=== PATIENT | male | born 1955 | race Caucasian/White ===

== ENCOUNTER → 2020-12-18 | Outpatient (CLI) | payer MEDICARE, OTHER ==
[2020-12-18 11:15] LABS: HEMOGLOBIN 10.9 g/dl (13.5-18.0); MEAN CELL VOLUME 97 fl (80.0-100.0); MEAN CORPUSCULAR HEMOGLOBIN 32 pg (27.0-31.0); MEAN CORPUSCULAR HGB CONC 33 g/dl (33.0-37.0); MEAN PLATELET VOLUME 10.6 fl (7.4-10.4); PLATELET COUNT 95 K/mm3 (130-400); RED BLOOD COUNT 3.38 M/mm3 (4.20-5.60); REDCELL DISTRIBUTION WIDTH-CV 16.8 % (11.5-14.5)
[2020-12-18 11:18] LABS: HEMATOCRIT 32.8 % (42.0-52.0)
[2020-12-18 11:26] LABS: BILIRUBIN,TOTAL 1.6 mg/dL (0.0-1.0); CALCIUM 8.9 mg/dL (8.4-10.2); CREATININE, serum 0.74 (0.66-1.25); MAGNESIUM 1.8 mg/dL (1.6-2.3); POTASSIUM 4.6 mmol/L (3.4-5.0); TOTAL PROTEIN 6.4 gm/dL (6.4-8.2)
[2020-12-18 11:49] LABS: ANISOCYTOSIS 1+; BAND 19 % (0-10); LYMPHOCYTE 2 % (20.0-51.0); NEUTROPHILS 78 % (42.0-75.2); PLATELET ESTIMATE DECREASED (NORMAL); TOXIC GRANULATION PRESENT
== END ==
LOC: COL.LAB 10:41
DX: C61 Malignant neoplasm of prostate (principal)

== ENCOUNTER → 2020-12-21 | Outpatient (CLI) | payer MEDICARE, OTHER ==
[2020-12-21 09:54] LABS: MEAN CELL VOLUME 96 fl (80.0-100.0); MEAN CORPUSCULAR HGB CONC 33 g/dl (33.0-37.0); MEAN PLATELET VOLUME 10.7 fl (7.4-10.4); PLATELET COUNT 73 K/mm3 (130-400); RED BLOOD COUNT 3.08 M/mm3 (4.20-5.60); REDCELL DISTRIBUTION WIDTH-CV 16.7 % (11.5-14.5)
[2020-12-21 09:56] LABS: HEMATOCRIT 29.6 % (42.0-52.0); HEMOGLOBIN 9.8 g/dl (13.5-18.0); MEAN CORPUSCULAR HEMOGLOBIN 32 pg (27.0-31.0)
[2020-12-21 10:03] LABS: ALBUMIN 4.1 gm/dL (3.5-5.0); BILIRUBIN,TOTAL 1.3 mg/dL (0.0-1.0); CALCIUM 8.9 mg/dL (8.4-10.2); CREATININE, serum 0.78 (0.66-1.25); MAGNESIUM 1.6 mg/dL (1.6-2.3); POTASSIUM 4.1 mmol/L (3.4-5.0); TOTAL PROTEIN 6.6 gm/dL (6.4-8.2)
[2020-12-21 10:31] LABS: BAND 9 % (0-10); LYMPHOCYTE 16 % (20.0-51.0); NEUTROPHILS 69 % (42.0-75.2)
[2020-12-21 10:32] LABS: OVALOCYTES 1+
[2020-12-21 10:33] LABS: PLATELET ESTIMATE DECREASED (NORMAL)
== END ==
LOC: COL.LAB 09:27
DX: C61 Malignant neoplasm of prostate (principal); C79.51 Secondary malignant neoplasm of bone

== ENCOUNTER → 2020-12-25 | Outpatient (CLI) | payer MEDICARE, OTHER ==
[2020-12-25 14:02] LABS: HEMOGLOBIN 11.2 g/dl (13.5-18.0); MEAN CELL VOLUME 97 fl (80.0-100.0); MEAN CORPUSCULAR HEMOGLOBIN 32 pg (27.0-31.0); MEAN CORPUSCULAR HGB CONC 33 g/dl (33.0-37.0); MEAN PLATELET VOLUME 10.5 fl (7.4-10.4); RED BLOOD COUNT 3.49 M/mm3 (4.20-5.60); REDCELL DISTRIBUTION WIDTH-CV 19.2 % (11.5-14.5)
[2020-12-25 14:12] LABS: BILIRUBIN,TOTAL 1.4 mg/dL (0.0-1.0); CREATININE, serum 0.85 (0.66-1.25); MAGNESIUM 1.8 mg/dL (1.6-2.3); POTASSIUM 4.2 mmol/L (3.4-5.0); TOTAL PROTEIN 6.3 gm/dL (6.4-8.2)
[2020-12-25 14:17] LABS: HEMATOCRIT 33.8 % (42.0-52.0)
[2020-12-25 14:21] LABS: PLATELET COUNT 45 K/mm3 (130-400)
[2020-12-25 15:23] LABS: BAND 21 % (0-10); EOSINOPHIL 2 % (0-4); LYMPHOCYTE 23 % (20.0-51.0); METAMYELOCYTE 2 % (0-0); NEUTROPHILS 49 % (42.0-75.2); NUCLEATED RED BLOOD CELL 2 (0-6)
[2020-12-25 15:24] LABS: PLATELET ESTIMATE DECREASED (NORMAL)
[2020-12-25 15:26] LABS: ANISOCYTOSIS 2+; OVALOCYTES 1+
[2020-12-25 15:27] LABS: TEAR DROP CELLS 1+
[2020-12-25 15:28] LABS: POLYCHROMASIA 2+; SCHISTOCYTES 1+
[2020-12-26 08:43] LABS: PATHOLOGY DIFF REVIEW OK
== END ==
LOC: COL.LAB 13:16
DX: C61 Malignant neoplasm of prostate (principal)

== ENCOUNTER → 2020-12-27 | Outpatient (CLI) | payer MEDICARE, OTHER ==
[2020-12-27 08:57] LABS: HEMOGLOBIN 12.1 g/dl (13.5-18.0); MEAN CELL VOLUME 95 fl (80.0-100.0); MEAN CORPUSCULAR HEMOGLOBIN 32 pg (27.0-31.0); MEAN CORPUSCULAR HGB CONC 33 g/dl (33.0-37.0); MEAN PLATELET VOLUME 11.9 fl (7.4-10.4); RED BLOOD COUNT 3.81 M/mm3 (4.20-5.60); REDCELL DISTRIBUTION WIDTH-CV 18.8 % (11.5-14.5)
[2020-12-27 08:58] LABS: HEMATOCRIT 36.3 % (42.0-52.0)
[2020-12-27 09:01] LABS: PLATELET COUNT 49 K/mm3 (130-400)
[2020-12-27 09:29] LABS: BAND 16 % (0-10); EOSINOPHIL 1 % (0-4); LYMPHOCYTE 18 % (20.0-51.0); METAMYELOCYTE 3 % (0-0); NEUTROPHILS 57 % (42.0-75.2); PLATELET ESTIMATE DECREASED (NORMAL)
[2020-12-27 09:30] LABS: ANISOCYTOSIS 1+
== END ==
LOC: COL.LAB 08:35
DX: C7A.1 Malignant poorly differentiated neuroendocrine tumors (principal)

== ENCOUNTER → 2020-12-29 | Outpatient (CLI) | payer MEDICARE, OTHER ==
[2020-12-29 11:51] LABS: HEMATOCRIT 37.5 % (42.0-52.0); HEMOGLOBIN 12.4 g/dl (13.5-18.0); MEAN CELL VOLUME 98 fl (80.0-100.0); MEAN CORPUSCULAR HEMOGLOBIN 32 pg (27.0-31.0); MEAN CORPUSCULAR HGB CONC 33 g/dl (33.0-37.0); MEAN PLATELET VOLUME 11.3 fl (7.4-10.4); PLATELET COUNT 63 K/mm3 (130-400); RED BLOOD COUNT 3.84 M/mm3 (4.20-5.60); REDCELL DISTRIBUTION WIDTH-CV 18.8 % (11.5-14.5)
[2020-12-29 12:20] LABS: BAND 8 % (0-10); EOSINOPHIL 2 % (0-4); LYMPHOCYTE 10 % (20.0-51.0); METAMYELOCYTE 2 % (0-0); MYELOCYTE 6 % (0-0); NEUTROPHILS 70 % (42.0-75.2); PLATELET ESTIMATE DECREASED (NORMAL)
[2020-12-29 12:21] LABS: ANISOCYTOSIS 1+
[2020-12-30 09:15] LABS: PATHOLOGY DIFF REVIEW OK
== END ==
LOC: COL.LAB 10:29
DX: C7A.1 Malignant poorly differentiated neuroendocrine tumors (principal)

== ENCOUNTER → 2021-01-01 | Outpatient (CLI) | payer MEDICARE, OTHER | LOC: COL.LAB 11:45 | DX: C61 Malignant neoplasm of prostate (principal) ==

== ENCOUNTER → 2021-01-15 | Outpatient (CLI) | payer MEDICARE, OTHER ==
[2021-01-15 11:39] LABS: HEMOGLOBIN 10.1 g/dl (13.5-18.0); MEAN CELL VOLUME 96 fl (80.0-100.0); MEAN CORPUSCULAR HEMOGLOBIN 32 pg (27.0-31.0); MEAN CORPUSCULAR HGB CONC 34 g/dl (33.0-37.0); MEAN PLATELET VOLUME 10.4 fl (7.4-10.4); PLATELET COUNT 52 K/mm3 (130-400); RED BLOOD COUNT 3.12 M/mm3 (4.20-5.60); REDCELL DISTRIBUTION WIDTH-CV 16.2 % (11.5-14.5)
[2021-01-15 11:48] LABS: ALBUMIN 3.8 gm/dL (3.5-5.0); BILIRUBIN,TOTAL 1.7 mg/dL (0.0-1.0); CALCIUM 8.7 mg/dL (8.4-10.2); CREATININE, serum 1.11 (0.66-1.25); MAGNESIUM 1.8 mg/dL (1.6-2.3); POTASSIUM 4.1 mmol/L (3.4-5.0); TOTAL PROTEIN 6.1 gm/dL (6.4-8.2)
[2021-01-15 11:54] LABS: HEMATOCRIT 29.8 % (42.0-52.0)
[2021-01-15 12:16] LABS: BAND 14 % (0-10); LYMPHOCYTE 5 % (20.0-51.0); NEUTROPHILS 80 % (42.0-75.2); PLATELET ESTIMATE DECREASED (NORMAL)
== END ==
LOC: COL.LAB 11:04
DX: C7A.1 Malignant poorly differentiated neuroendocrine tumors (principal); C61 Malignant neoplasm of prostate; C77.0 Secondary and unspecified malignant neoplasm of lymph nodes of head, face and neck; C77.2 Secondary and unspecified malignant neoplasm of intra-abdominal lymph nodes; D69.8 Other specified hemorrhagic conditions; N40.1 Benign prostatic hyperplasia with lower urinary tract symptoms

== ENCOUNTER → 2021-01-18 | Outpatient (CLI) | payer MEDICARE, OTHER ==
[2021-01-18 10:17] LABS: MEAN CELL VOLUME 96 fl (80.0-100.0); MEAN CORPUSCULAR HGB CONC 33 g/dl (33.0-37.0); MEAN PLATELET VOLUME 10.1 fl (7.4-10.4); RED BLOOD COUNT 2.62 M/mm3 (4.20-5.60); REDCELL DISTRIBUTION WIDTH-CV 15.9 % (11.5-14.5)
[2021-01-18 10:26] LABS: HEMATOCRIT 25.2 % (42.0-52.0); HEMOGLOBIN 8.4 g/dl (13.5-18.0); MEAN CORPUSCULAR HEMOGLOBIN 32 pg (27.0-31.0); PLATELET COUNT 41 K/mm3 (130-400)
[2021-01-18 10:32] LABS: ALBUMIN 3.9 gm/dL (3.5-5.0); BILIRUBIN,TOTAL 1.9 mg/dL (0.0-1.0); CALCIUM 8.9 mg/dL (8.4-10.2); CREATININE, serum 0.82 (0.66-1.25); MAGNESIUM 1.8 mg/dL (1.6-2.3); POTASSIUM 4.4 mmol/L (3.4-5.0); TOTAL PROTEIN 6.2 gm/dL (6.4-8.2)
[2021-01-18 11:04] LABS: BASOPHIL 1 % (0-2); LYMPHOCYTE 24 % (20.0-51.0); NEUTROPHILS 64 % (42.0-75.2); PLATELET ESTIMATE DECREASED (NORMAL)
[2021-01-18 11:05] LABS: ANISOCYTOSIS 1+; HYPOCHROMIA 2+
== END ==
LOC: COL.LAB 09:49
DX: C7A.1 Malignant poorly differentiated neuroendocrine tumors (principal); C77.0 Secondary and unspecified malignant neoplasm of lymph nodes of head, face and neck; C61 Malignant neoplasm of prostate; N40.1 Benign prostatic hyperplasia with lower urinary tract symptoms; C77.2 Secondary and unspecified malignant neoplasm of intra-abdominal lymph nodes; D69.8 Other specified hemorrhagic conditions

== ENCOUNTER → 2021-01-25 | Outpatient (CLI) | payer MEDICARE, OTHER ==
[2021-01-25 09:13] LABS: MEAN CELL VOLUME 99 fl (80.0-100.0); MEAN CORPUSCULAR HGB CONC 33 g/dl (33.0-37.0); MEAN PLATELET VOLUME 9.9 fl (7.4-10.4); PLATELET COUNT 80 K/mm3 (130-400); RED BLOOD COUNT 2.88 M/mm3 (4.20-5.60); REDCELL DISTRIBUTION WIDTH-CV 20.7 % (11.5-14.5)
[2021-01-25 09:22] LABS: ALBUMIN 4.3 gm/dL (3.5-5.0); BILIRUBIN,TOTAL 1.9 mg/dL (0.0-1.0); CALCIUM 9.3 mg/dL (8.4-10.2); CREATININE, serum 1.06 (0.66-1.25); MAGNESIUM 1.8 mg/dL (1.6-2.3); TOTAL PROTEIN 6.6 gm/dL (6.4-8.2)
[2021-01-25 09:39] LABS: HEMATOCRIT 28.4 % (42.0-52.0); HEMOGLOBIN 9.3 g/dl (13.5-18.0); MEAN CORPUSCULAR HEMOGLOBIN 32 pg (27.0-31.0)
[2021-01-25 09:52] LABS: ANISOCYTOSIS 2+; BAND 6 % (0-10); EOSINOPHIL 2 % (0-4); LYMPHOCYTE 13 % (20.0-51.0); METAMYELOCYTE 5 % (0-0); MYELOCYTE 1 % (0-0); NEUTROPHILS 66 % (42.0-75.2); PLATELET ESTIMATE DECREASED (NORMAL)
== END ==
LOC: COL.LAB 08:52
DX: C7A.1 Malignant poorly differentiated neuroendocrine tumors (principal); C61 Malignant neoplasm of prostate; C77.0 Secondary and unspecified malignant neoplasm of lymph nodes of head, face and neck; N40.1 Benign prostatic hyperplasia with lower urinary tract symptoms; C77.2 Secondary and unspecified malignant neoplasm of intra-abdominal lymph nodes; D69.6 Thrombocytopenia, unspecified

== ENCOUNTER → 2021-01-29 | Outpatient (CLI) | payer MEDICARE, OTHER ==
[2021-01-29 11:35] LABS: HEMOGLOBIN 10.3 g/dl (13.5-18.0); MEAN CELL VOLUME 99 fl (80.0-100.0); MEAN CORPUSCULAR HEMOGLOBIN 33 pg (27.0-31.0); MEAN CORPUSCULAR HGB CONC 33 g/dl (33.0-37.0); MEAN PLATELET VOLUME 9.3 fl (7.4-10.4); PLATELET COUNT 103 K/mm3 (130-400); RED BLOOD COUNT 3.17 M/mm3 (4.20-5.60); REDCELL DISTRIBUTION WIDTH-CV 21.4 % (11.5-14.5)
[2021-01-29 11:37] LABS: HEMATOCRIT 31.5 % (42.0-52.0)
[2021-01-29 11:42] LABS: ALBUMIN 4.3 gm/dL (3.5-5.0); BILIRUBIN,TOTAL 1.8 mg/dL (0.0-1.0); CALCIUM 8.8 mg/dL (8.4-10.2); CREATININE, serum 0.83 (0.66-1.25); MAGNESIUM 1.9 mg/dL (1.6-2.3); POTASSIUM 4.2 mmol/L (3.4-5.0); TOTAL PROTEIN 6.5 gm/dL (6.4-8.2)
[2021-01-29 12:34] LABS: BAND 8 % (0-10); BASOPHIL 1 % (0-2); LYMPHOCYTE 14 % (20.0-51.0); METAMYELOCYTE 3 % (0-0); NEUTROPHILS 65 % (42.0-75.2); NUCLEATED RED BLOOD CELL 1 (0-6)
[2021-01-29 12:35] LABS: ANISOCYTOSIS 2+; PLATELET ESTIMATE NORMAL (NORMAL)
[2021-01-29 12:36] LABS: ROULEAUX 2+
[2021-01-29 12:37] LABS: HYPOCHROMIA 1+
[2021-01-30 08:13] LABS: PATHOLOGY DIFF REVIEW OK
== END ==
LOC: COL.LAB 10:52
DX: C77.0 Secondary and unspecified malignant neoplasm of lymph nodes of head, face and neck (principal); C7A.1 Malignant poorly differentiated neuroendocrine tumors; C61 Malignant neoplasm of prostate; C77.2 Secondary and unspecified malignant neoplasm of intra-abdominal lymph nodes; N40.1 Benign prostatic hyperplasia with lower urinary tract symptoms; D69.6 Thrombocytopenia, unspecified

== ENCOUNTER → 2021-02-01 | Outpatient (CLI) | payer MEDICARE, OTHER ==
[2021-02-01 12:44] LABS: HEMOGLOBIN 11.7 g/dl (13.5-18.0); MEAN CELL VOLUME 99 fl (80.0-100.0); MEAN CORPUSCULAR HEMOGLOBIN 33 pg (27.0-31.0); MEAN CORPUSCULAR HGB CONC 33 g/dl (33.0-37.0); MEAN PLATELET VOLUME 10.4 fl (7.4-10.4); PLATELET COUNT 121 K/mm3 (130-400); REDCELL DISTRIBUTION WIDTH-CV 20.7 % (11.5-14.5)
[2021-02-01 12:51] LABS: HEMATOCRIT 35.8 % (42.0-52.0)
[2021-02-01 13:04] LABS: ALBUMIN 4.4 gm/dL (3.5-5.0); BILIRUBIN,TOTAL 2.3 mg/dL (0.0-1.0); CALCIUM 9.2 mg/dL (8.4-10.2); CREATININE, serum 0.94 (0.66-1.25); POTASSIUM 4.2 mmol/L (3.4-5.0); TOTAL PROTEIN 6.9 gm/dL (6.4-8.2)
[2021-02-01 13:06] LABS: ANISOCYTOSIS 1+; BAND 2 % (0-10); LYMPHOCYTE 22 % (20.0-51.0); METAMYELOCYTE 1 % (0-0); NEUTROPHILS 70 % (42.0-75.2); PLATELET ESTIMATE NORMAL (NORMAL)
== END ==
LOC: COL.LAB 12:12
DX: C7A.1 Malignant poorly differentiated neuroendocrine tumors (principal); C61 Malignant neoplasm of prostate; C77.0 Secondary and unspecified malignant neoplasm of lymph nodes of head, face and neck; C77.2 Secondary and unspecified malignant neoplasm of intra-abdominal lymph nodes; N40.1 Benign prostatic hyperplasia with lower urinary tract symptoms; D69.6 Thrombocytopenia, unspecified

== ENCOUNTER → 2021-03-19 | Outpatient (CLI) | payer MEDICARE, OTHER ==
[2021-03-19 08:49] LABS: BASO % 0.3 % (0.0-2.0); EOS % 1.2 % (0-4.0); GRAN # 2.3 (1.4-6.5); GRAN % 67.9 % (42.2-75.2); LYMPH # 0.8 (1.2-3.4); LYMPH % 22.9 % (20.0-51.0); MEAN CELL VOLUME 97 fl (80.0-100.0); MEAN CORPUSCULAR HEMOGLOBIN 32 pg (27.0-31.0); MEAN CORPUSCULAR HGB CONC 33 g/dl (33.0-37.0); MEAN PLATELET VOLUME 9.6 fl (7.4-10.4); MONO # 0.2 (0.1-0.6); MONO % 6.8 % (1.7-9.3); PLATELET COUNT 80 K/mm3 (130-400); RED BLOOD COUNT 3.81 M/mm3 (4.20-5.60); REDCELL DISTRIBUTION WIDTH-CV 17.2 % (11.5-14.5)
[2021-03-19 08:52] LABS: HEMATOCRIT 36.9 % (42.0-52.0)
[2021-03-19 09:03] LABS: ALBUMIN 4.2 gm/dL (3.5-5.0); BILIRUBIN,TOTAL 2.4 mg/dL (0.0-1.0); CREATININE, serum 0.84 (0.66-1.25); POTASSIUM 4.2 mmol/L (3.4-5.0); TOTAL PROTEIN 6.9 gm/dL (6.4-8.2)
== END ==
LOC: COL.LAB 08:14
DX: C7A.1 Malignant poorly differentiated neuroendocrine tumors (principal)

== ENCOUNTER 2022-07-02 09:00 | Outpatient (CLI) | payer MEDICARE, OTHER ==
[~2022-07-02] VITALS: Ht 182.9 cm; Wt 98.0 kg
[2022-07-02] VITALS (15 sets, daily range): BP systolic 127–157; BP diastolic 75–98; PULSE 64–81; TEMP 98.3
[~2022-07-02 09:00] MED LIST: GLUCOPHAGE500 MG/TAB PO; JANUVIA 100MG100 MG PO; VITAMIN D31000 IU PO; VITAMINC1000TA PO
--- NOTE | 2022-07-02 09:55 | NUR ---
Pt transported to CT per ambulation. Pt positioned in prone position on CT table. Monitors applied and O2 on at 2l/nc.
--- NOTE | 2022-07-02 10:17 | NUR ---
Specimens obtained by Dr Lubin and placed in formalin. Specimen labeled.
--- NOTE | 2022-07-02 10:30 | NUR ---
Chest xray completed
== END 2022-07-02 13:35 | disposition home or self-care (01) ==
LOC: COL.RAD 09:00
DX: R91.1 Solitary pulmonary nodule (principal); Z85.46 Personal history of malignant neoplasm of prostate
CPT/HCPCS: 32106

== ENCOUNTER → 2023-02-21 | Outpatient (CLI) | payer MEDICARE, OTHER ==
[~2023-02-21] MED LIST changes: +CEFTIN500 MG PO; +CORDARONE200 MG/TAB PO; +DECADRON 4MG TAB4 MG; +DOXYCYCLINE 10100 MG PO; +DOXYCYCLINE HY100 MG PO; +GLUCOPHAGE XR500 M1 PO; +KEYTRUDA25 MG/ML IV; +PREDNISONE10 MG PO; +RT ADVAIR 228 DISKUS IH; +SPIRIVA RE2.5 MCG/Ac IH; +TRIAMC 0.1 454 TOP
[2023-02-21 12:24] LABS: C-REACTIVE PROTEIN 1.09 mg/dL (0.00-0.50)
[2023-02-21 23:05] LABS: PROCALCITONIN 0.05 ng/mL (0.00-0.09)
== END ==
LOC: COL.LAB 11:42
PROVIDERS: Internal Medicine Pulmonary Disease
DX: R93.89 Abnormal findings on diagnostic imaging of other specified body structures (principal)

== ENCOUNTER 2023-03-05 06:49 | Outpatient (CLI) | payer MEDICARE, OTHER ==
[~2023-03-05] VITALS: Ht 182.9 cm; Wt 76.7 kg
[2023-03-05] VITALS (11 sets, daily range): BP systolic 123–141; BP diastolic 71–87; PULSE 73–86; TEMP 98.3
[~2023-03-05 06:49] MED LIST changes: +PACERONE200 MG PO
--- NOTE | 2023-03-05 07:45 | NUR ---
pt to ct per wheelchair. Pt up and onto ct table in prone position. Monitors applied. O2 continues at 4l/nc as per at home.
--- NOTE | 2023-03-05 07:58 | NUR ---
Specimens obtained by Dr Pope and placed in formalin. Specimen labeled.
== END 2023-03-05 10:00 | disposition home or self-care (01) ==
LOC: COL.RAD 06:49
DX: C61 Malignant neoplasm of prostate (principal); R93.89 Abnormal findings on diagnostic imaging of other specified body structures; C34.32 Malignant neoplasm of lower lobe, left bronchus or lung; E11.9 Type 2 diabetes mellitus without complications; C77.2 Secondary and unspecified malignant neoplasm of intra-abdominal lymph nodes; C79.51 Secondary malignant neoplasm of bone; C78.01 Secondary malignant neoplasm of right lung; D69.6 Thrombocytopenia, unspecified
CPT/HCPCS: 32106

== ENCOUNTER 2023-03-14 15:05 | Inpatient (IN) | payer MEDICARE, OTHER ==
[~2023-03-14] VITALS: Ht 182.9 cm; Wt 77.7 kg
[2023-03-14 15:42] LABS: HEMATOCRIT 39.4 % (42.0-52.0); HEMOGLOBIN 13.4 g/dl (13.5-18.0); MEAN CELL VOLUME 87 fl (80.0-100.0); MEAN CORPUSCULAR HEMOGLOBIN 30 pg (27-31); MEAN CORPUSCULAR HGB CONC 34 g/dl (33.0-37.0); MEAN PLATELET VOLUME 9.5 fl (7.4-10.4); PLATELET COUNT 140 K/mm3 (130-400); RED BLOOD COUNT 4.51 M/mm3 (4.20-5.60); REDCELL DISTRIBUTION WIDTH-CV 19.5 % (11.5-14.5)
[2023-03-14 15:55] LABS: ALBUMIN 3.1 gm/dL (3.4-4.8); BILIRUBIN,TOTAL 1.5 mg/dL (0.2-1.2); C-REACTIVE PROTEIN 9.47 mg/dL (0.00-0.50); CREATININE, serum 0.73 mg/dL (0.72-1.25); POTASSIUM 3.9 mmol/L (3.5-4.5); TOTAL PROTEIN 6.8 gm/dL (6.2-8.1)
[2023-03-14 15:59] LABS: ARTERIAL BLD GAS O2 SATURATION 95.6 % (92-100); ARTERIAL BLD GAS TCO2 CT 23.4; ARTERIAL BLOOD GAS HCO3 22.3 meq/L (22-26); ARTERIAL BLOOD GAS PCO2 33.1 mmHg (35-45); ARTERIAL BLOOD GAS PO2 76.1 mmHg (80-100); ARTERIAL BLOOD GAS pH 7.45 (7.35-7.45)
[2023-03-14 16:02] LABS: BAND 1 % (0-10); LYMPHOCYTE 10 % (20.0-51.0); NEUTROPHILS 79 % (42.0-75.2); TROPONIN-I 0.014 ng/mL (0.00-0.033)
[2023-03-14 16:03] LABS: ANISOCYTOSIS 2+; PLATELET ESTIMATE NORMAL (NORMAL)
[2023-03-14] MEDS ORDERED: PROTONIX 40MG T40 MG PO (16:24)
[2023-03-14 19:55] VITALS: BP 127/60; PULSE 103; TEMP 98
[2023-03-14 21:00] VITALS: BP_SYST 132
[2023-03-14 23:46] VITALS: BP 132/72; PULSE 95; TEMP 97.8
[2023-03-15] VITALS (11 sets, daily range): BP systolic 122–144; BP diastolic 53–79; PULSE 58–99; TEMP 97.7–98.6
--- NOTE | 2023-03-15 07:09 | NUR ---
Pt was brought up to the floor on 7 L O2. At around 0000 he was found sitting up in bed having difficulty breathing and feeling hot. He stated that he felt like nothing was coming out of the oxygen mask. His O2 was 86%. The O2 extension was taken off and the HOB was elevated. The O2 was turned up to 10 L until he stablized above 90%. It was then taken back down to 8 L where he remained stable. A one-time dose of Lasixs was given as ordered (see eMar). I advised that we try to avoid exersion and use the urinal for tonight. The remainder of the night was uneventful and he rested well.
--- NOTE | 2023-03-15 10:24 | NUR ---
Initial visit; Patient thanked Catering Chef for stopping though declined spiritual care. Patient had family with him.
--- NOTE | 2023-03-15 12:51 | NUR ---
Shift assessment is done this morning. Patient is on 8L of oxymask, denies any pain or SOB at this time. His BG was 422 in the morning and [address] Dunaway is notified. He said to give what is scheduled at this time. Will continue to monitor.
--- NOTE | 2023-03-15 14:30 | NUR ---
THIS RN OVERSAW PT CARE AND MEDICATION ADMINISTRATION COMPLETED BY AIDEN IZQUIERDO.
[2023-03-16] VITALS (12 sets, daily range): BP systolic 117–137; BP diastolic 60–68; PULSE 74–92; TEMP 97.5–98.7
--- NOTE | 2023-03-16 05:07 | NUR ---
Shift assessment completed around 2139. Pt is A&O x4. Watching TV at this time. On O2 at 8L per oxymask. BS 383 at this time. Insulin administered. LAC INT is CDI. Pt has some coughing, but no pain is reported. Pt states that edema on BLE are improved and feels better than previous day. Belongings and call light are within reach.
--- NOTE | 2023-03-16 10:00 | NUR ---
PT RESTING IN BED, FAMILY AT BEDSIDE. MORNING MEDICATIONS GIVEN BY YVONNE STUDENT RN. SHIFT ASSESSMENT COMPLETED. CURRENTLY ON 6L VIA OXYMASK. DENIES ANY OTHER NEEDS AT THIS TIME. WILL CONTINUE TO MONITOR.
[2023-03-17] VITALS (13 sets, daily range): BP systolic 120–131; BP diastolic 60–75; PULSE 62–87; TEMP 97.7–98.6
--- NOTE | 2023-03-17 02:05 | NUR ---
Assessment completed around 2114. A&Ox4. Insulin administered. Edema in BLE decreased. Denies any pain or discomfort at this time. Pt is on O2 per Oxymnask at 5L. LAC INT is CDI. Belongings and call light are within reach.
[2023-03-17 09:00] LABS: PATHOLOGY DIFF REVIEW OK
--- NOTE | 2023-03-17 10:37 | NUR ---
SW met with pt for intake. Pt confirmed living in [facility] with spouse An who is identified as next of kin and present during intake. An verified contact number as [phone]. Pt confirmed PCP as Dr. Henderson and pharm is Mil[facility] Madrigal without any issues. Pt reported having DME available to include: wheel chair, walker, shower chair, and son is going to install bars for toilet. Pt denied having stairs. Pt reported Dr. Chaves recommended speaking to to request bigger O2 concentrator as the one he has at home is through [facility] and is 5L but would like a larger one. SW will attempt to see if this can be an option. Pt does not have DPOA and is interested in completing one while here, spouse would like to complete as well. SW called [facility] to request larger concentrator.
--- NOTE | 2023-03-17 10:47 | NUR ---
SW called [facility] and explained desire for larger concetrator. SW was informed pt was at 2L two months ago and with a new script of 5L or above, he will be able to receive a 10L concentrator with prescription. Pt reported march D/C tomorrow, CHRISTIANO passed on information to Luz.
[2023-03-17 10:49] LABS: HEMOGLOBIN 11.8 g/dl (13.5-18.0); MEAN CELL VOLUME 88 fl (80.0-100.0); MEAN CORPUSCULAR HEMOGLOBIN 29 pg (27-31); MEAN CORPUSCULAR HGB CONC 33 g/dl (33.0-37.0); MEAN PLATELET VOLUME 8.9 fl (7.4-10.4); PLATELET COUNT 101 K/mm3 (130-400); RED BLOOD COUNT 4.08 M/mm3 (4.20-5.60); REDCELL DISTRIBUTION WIDTH-CV 18.6 % (11.5-14.5)
[2023-03-17 10:56] LABS: HEMATOCRIT 35.7 % (42.0-52.0)
[2023-03-17 11:04] LABS: CALCIUM 8.9 mg/dL (8.4-10.2); CREATININE, serum 0.88 mg/dL (0.72-1.25); MAGNESIUM 1.8 mg/dL (1.6-2.6); POTASSIUM 3.5 mmol/L (3.5-4.5)
[2023-03-17 11:31] LABS: BAND 7 % (0-10); LYMPHOCYTE 2 % (20.0-51.0); NEUTROPHILS 89 % (42.0-75.2)
[2023-03-17 11:32] LABS: ANISOCYTOSIS 1+; PLATELET ESTIMATE DECREASED (NORMAL); POLYCHROMASIA 1+
[2023-03-18 00:11] VITALS: BP_SYST 120
[2023-03-18 04:06] VITALS: BP 114/65; PULSE 67; TEMP 98.4
[2023-03-18 04:27] VITALS: BP_SYST 114
--- NOTE | 2023-03-18 05:48 | NUR ---
Patient rested off and on this shift. Currently on 5L/NC with adequate oxygentation. Received antibiotics overnight to Left AC INT. No s/s of infiltration noted. Tele reporting SR. VS remained stable. Resting in bed with eyes open/no c/o at this time. Will monitor.
[2023-03-18 08:00] VITALS: BP 129/61; PULSE 56; TEMP 97.8
[2023-03-18 11:37] VITALS: BP 123/65; PULSE 71; TEMP 98
[2023-03-18] MEDS ORDERED: CEFTIN500 MG PO (13:30)
[2023-03-18] MEDS ORDERED: PREDNISONE20 MG PO (13:31)
[2023-03-18] MEDS ORDERED: OXYGEN NASAL.CANN (13:54)
--- NOTE | 2023-03-18 14:20 | NUR ---
Patient discharged to home, taken home by . Used home portable oxygen to take home. Educated on discharge instructions and new medications, pt and verbalized understanding. Pt states he has talked to medical equipment company and has arranged for new oxygen concentrator to be brought to his house. Assisted to car safely by nursing staff. IV and monitor tech removed prior to discharge.
--- NOTE | 2023-03-18 14:36 | NUR ---
SW notified by patients RN that the patient has DPOA-HC completed and is ready to sign it. Patients at bedside. This SW and patients RN witness patients signature designating his An ([phone]) and son Lamin ([phone]). Copy placed in the patients chart. Original and additional copies provided to the patient. SW notified by RT that the patient is needing an increase in his oxygen to 10L with ambulation. RT writes SPO2 orders. ROBERT provides this SW with new RX. Clinical documentation and new prescription faxed to [facility]. Phone call made and CHRISTIANO spoke with Clemente and informed him of the increase oxygen need. Copy of hand written documentation stickered and placed in the patients chart. Discharge plan: Home with increased oxygen need.
[2023-03-18 14:57] LABS: CALCIUM 8.7 mg/dL (8.4-10.2); CREATININE, serum 0.69 mg/dL (0.72-1.25); POTASSIUM 3.8 mmol/L (3.5-4.5)
[2023-03-18 16:39] LABS: HEMATOCRIT 33.9 % (42.0-52.0); HEMOGLOBIN 11.1 g/dl (13.5-18.0); MEAN CELL VOLUME 89 fl (80.0-100.0); MEAN CORPUSCULAR HEMOGLOBIN 29 pg (27-31); MEAN CORPUSCULAR HGB CONC 33 g/dl (33.0-37.0); MEAN PLATELET VOLUME 9.2 fl (7.4-10.4); PLATELET COUNT 83 K/mm3 (130-400); RED BLOOD COUNT 3.82 M/mm3 (4.20-5.60); REDCELL DISTRIBUTION WIDTH-CV 18.7 % (11.5-14.5)
[2023-03-18 17:22] LABS: LYMPHOCYTE 9 % (20.0-51.0); MYELOCYTE 1 % (0-0); NEUTROPHILS 78 % (42.0-75.2)
[2023-03-18 17:23] LABS: BAND 6 % (0-10)
== END 2023-03-18 14:20 | disposition home or self-care (01) | DRG 189 ==
LOC: COL.ER 15:05 → MEDICAL 16:16
PROVIDERS: Nurse Practitioner; Physician Assistant; ADMIT Internal Medicine
DX: J96.21 Acute and chronic respiratory failure with hypoxia (principal); C77.9 Secondary and unspecified malignant neoplasm of lymph node, unspecified; J94.8 Other specified pleural conditions; R65.10 Systemic inflammatory response syndrome (SIRS) of non-infectious origin without acute organ dysfunction; C34.92 Malignant neoplasm of unspecified part of left bronchus or lung; C34.91 Malignant neoplasm of unspecified part of right bronchus or lung; Z66 Do not resuscitate; I48.0 Paroxysmal atrial fibrillation; K21.9 Gastro-esophageal reflux disease without esophagitis; E11.65 Type 2 diabetes mellitus with hyperglycemia; Z95.818 Presence of other cardiac implants and grafts; Z79.84 Long term (current) use of oral hypoglycemic drugs; Z79.899 Other long term (current) drug therapy; Z87.891 Personal history of nicotine dependence; Z85.46 Personal history of malignant neoplasm of prostate; Z85.51 Personal history of malignant neoplasm of bladder
CPT/HCPCS: A9270; J0692; J1650; J1815; J1940; J2920; J7512; Q9967